=== PATIENT | female | born 1975 | race Two or more races ===

== ENCOUNTER 2019-10-24 08:09 | Emergency (ER) | payer BC, MEDICAID, OTHER ==
--- NOTE | 2019-10-24 11:08 | ER Document Report ---
ED General - General Chief Complaint: Fever Stated Complaint: FLU LIKE SYMPTOMS Time Seen by Provider: 10/24/19 11:07 Primary Care Provider: MATTI TATUM MD [COMMUNITY BASED STAFF] - Follow up as needed DAVON ARITA MD [ACTIVE STAFF] - Follow up as needed Mode of Arrival: Ambulatory TRAVEL OUTSIDE OF THE [place] IN LAST 30 DAYS: Yes COUNTRY TRAVELED TO/FROM: [facility] - HPI Onset: This morning Onset/Duration: Gradual Quality of pain: No pain Severity: Moderate Pain Level: Denies Associated symptoms: Diarrhea, Other - Dizziness Exacerbated by: Denies Relieved by: Denies Similar symptoms previously: No Recently seen / treated by doctor: No Notes: 44 year old female with no significant PMH here for dizziness like the room is spinning, mild headaches and weakness since this morning. The patient just got back from [facility] on Oct 10. The patient had 3-4 days of diarrhea upon returning from [facility] but that has since resolved. The patient says she was on a couple boat trips in [facility] and she felt somewhat like she did this morning but this mornings symptoms were worse. The patient has never had vertigo before. - Related Data Allergies/Adverse Reactions: acetaminophen [From Zamicet] Allergy (Mild, Verified 07/26/15 22:12) itching hydrocodone bitartrate [From Zamicet] Allergy (Mild, Verified 07/26/15 22:12) itching Past Medical History - General Information source: Patient - Social History Smoking Status: Never Smoker Frequency of alcohol use: Occasional Drug Abuse: None Lives with: Spouse/Significant other Family History: Reviewed & Not Pertinent Patient has suicidal ideation: No Patient has homicidal ideation: No Review of Systems - Review of Systems Constitutional: Weakness EENT: No symptoms reported Cardiovascular: No symptoms reported Respiratory: No symptoms reported Gastrointestinal: Diarrhea - which has since resolved Genitourinary: No symptoms reported Female Genitourinary: No symptoms reported Musculoskeletal: No symptoms reported Skin: No symptoms reported Hematologic/Lymphatic: No symptoms reported Neurological/Psychological: Headaches, Other - Dizziness, sense of room spinning -: Yes All other systems reviewed and negative Physical Exam - Vital signs Vitals: Temp Pulse Resp BP Pulse Ox 98.8 F 70 16 115/75 100 10/24/19 08:17 10/24/19 08:17 10/24/19 08:17 10/24/19 08:17 10/24/19 08:17 - Notes Notes: GENERAL: Well-appearing, well-nourished and in no acute distress. HEAD: Atraumatic, normocephalic. EYES: Pupils equal round and reactive to light, extraocular movements intact, sclera anicteric, conjunctiva are normal. ENT: TMs normal, nares patent, oropharynx clear without exudates. Moist mucous membranes. NECK: Normal range of motion, supple without lymphadenopathy or JVD. LUNGS: Breath sounds clear to auscultation bilaterally and equal. No wheezes rales or rhonchi. HEART: Regular rate and rhythm without murmurs, rubs or gallops. ABDOMEN: Soft, nontender, normoactive bowel sounds. No guarding, no rebound. No masses appreciated. EXTREMITIES: Normal range of motion, no pitting or edema. No clubbing or cyanosis. NEUROLOGICAL: Cranial nerves II through XII grossly intact. Normal speech, normal gait. PSYCH: Normal mood, normal affect. SKIN: Warm, Dry, normal turgor, no rashes or lesions noted. Course - Re-evaluation Re-evalutation: 10/24/19 14:25 The patient had dizziness and weakness since this morning. She had several days of diarrhea when getting back from [facility] but that has not been present for the last 2 weeks. The patient had been on a boat and rapid movements of her head made her symptoms worse. Patient also had horizontal nystagmus on exam. It seems the patient has peripheral vertigo. She felt better with Meclizine. The patient also had mild orthostatic hypotension which could also be contirbuting to her symptoms. There was a concern for Coronovirus by nursing since the patient was recently in [facility] but the patient has had no fevers and has had no URI symptoms so this seems highly unlikely. Will DC patient with a script for Meclizine. - Vital Signs Vital signs: Temp Pulse Resp BP Pulse Ox 98.8 F 68 16 108/63 100 10/24/19 08:17 10/24/19 12:01 10/24/19 08:17 10/24/19 12:01 10/24/19 08:17 - Laboratory Result Diagrams: 10/24/19 11:03 10/24/19 11:03 Laboratory results interpreted by me: 10/24/19 10/24/19 11:03 11:03 RBC 5.69 H MCV 65 L MCH 21.8 L RDW 15.8 H Creatinine 0.46 L Discharge - Discharge Clinical Impression: Vertigo, Viral illness Condition: Stable Disposition: HOME, SELF-CARE Instructions: Vertigo ([facility]), Viral Syndrome ([facility]) Additional Instructions: Use Meclizine as prescribed for nausea/dizziness/vertigo symptoms. Drink plenty of fluids in the days to come. Follow up with your primary care doctor or one of the primary care doctors listed in your paperwork if symptoms persist. Prescriptions: Meclizine HCl [Antivert 25 mg Tablet] 25 mg PO TID PRN #21 tablet PRN Reason: Referrals: MATTI TATUM MD [COMMUNITY BASED STAFF] - Follow up as needed DAVON ARITA MD [ACTIVE STAFF] - Follow up as needed
[2019-10-24 11:17] LABS: ABSOLUTE MONOCYTES (AUTO) 0.2 10^3/uL (0.1-1.4); ABSOLUTE NEUT (AUTO) 4.4 10^3/uL (1.7-8.2); BASOPHILS % (AUTO) 0.3 % (0-2); EOSINOPHILS % (AUTO) 0.5 % (0-6); HEMATOCRIT 36.9 % (36.0-47.0); HEMOGLOBIN 12.4 g/dL (12.0-15.5); LYMPHOCYTES % (AUTO) 17.9 % (13-45); MEAN CORPUSCULAR HEMOGLOBIN 21.8 pg (27.0-33.4); MEAN CORPUSCULAR HGB CONC 33.6 g/dL (32.0-36.0); MEAN CORPUSCULAR VOLUME 65 fl (80-97); MONOCYTES % (AUTO) 4.1 % (3-13); PLATELET COUNT 226 10^3/uL (150-450); RED BLOOD COUNT 5.69 10^6/uL (3.72-5.28); RED CELL DISTRIBUTION WIDTH 15.8 % (11.5-14.0); SEGMENTED NEUTROPHILS % (AUTO) 77.2 % (42-78); TOTAL CELLS COUNTED % (AUTO) 100 %; WHITE BLOOD COUNT 5.7 10^3/uL (4.0-10.5)
[2019-10-24] MEDS ORDERED: MECLIZINE HCL 25 MG TABLET PO ONE (11:26)
[2019-10-24 11:40] LABS: ALBUMIN 4.3 g/dL (3.5-5.0); ALKALINE PHOSPHATASE 57 U/L (38-126); ANION GAP 7 (5-19); ASPARTATE AMINO TRANSFERASE 24 U/L (14-36); BILIRUBIN,TOTAL 0.7 mg/dL (0.2-1.3); BLOOD UREA NITROGEN 12 mg/dL (7-20); CALCIUM 9.3 mg/dL (8.4-10.2); CARBON DIOXIDE 25 mmol/L (22-30); CHLORIDE 106 mmol/L (98-107); GLUCOSE 97 mg/dL (75-110); POTASSIUM 4.1 mmol/L (3.6-5.0); TOTAL PROTEIN 7.5 g/dL (6.3-8.2)
[2019-10-24 11:48] LABS: ANISOCYTOSIS SLIGHT; HYPOCHROMASIA 1+; OVALOCYTES SLIGHT; POIKILOCYTOSIS SLIGHT; TARGET CELLS 1+; TEAR DROP CELLS SLIGHT
[2019-10-24 11:49] LABS: PLATELET COMMENT ADEQUATE
[2019-10-24 12:29] LABS: A TYPE INFLUENZA AG NEGATIVE (NEGATIVE); B INFLUENZA AG NEGATIVE (NEGATIVE)
[2019-10-24] MEDS ORDERED: NORMAL SALINE 1000 ML 1,000 ML IV ONE (12:47)
[2019-10-24 14:12] LABS: APPEARANCE,URINE CLEAR; BILIRUBIN,URINE NEGATIVE (NEGATIVE); COLOR,URINE COLORLESS; GLUCOSE, URINE NEGATIVE (NEGATIVE); KETONES,URINE NEGATIVE (NEGATIVE); LEUKOCYTE ESTERASE,URINE NEGATIVE (NEGATIVE); NITRITE,URINE NEGATIVE (NEGATIVE); PROTEIN,URINE NEGATIVE (NEGATIVE); URINE SPECIFIC GRAVITY 1.004; UROBILINOGEN,URINE NEGATIVE mg/dL (<2.0)
[2019-10-24 14:53] VITALS: BP 108/67
== END 2019-10-24 14:54 | disposition home or self-care (01) ==
LOC: ER 08:09
DX: B34.9 Viral infection, unspecified (principal); R42 Dizziness and giddiness; R50.9 Fever, unspecified; R19.7 Diarrhea, unspecified; R51 Headache; R53.1 Weakness; Z88.6 Allergy status to analgesic agent
CPT/HCPCS: 36415; 85025; 80053; 81001; 87804; J7030; 96360; 99283